=== PATIENT | male | born 1985 | race Caucasian/White ===

== ENCOUNTER → 2025-03-11 | Outpatient (CLI) | payer OTHER, SELFPAY ==
--- NOTE | 2025-03-11 08:10 | ECHOD_ITS ---
Reason For Study Reason For Study: Palpitations Procedure This was a 2D Doppler, Color Flow transthoracic echocardiogram. Myocardial strain analysis was performed in this exam to aid in the assessment of cardiac function. Exam performed in department. Left Ventricle Normal left ventricle. The global longitudinal strain = -17.0 % (normal). The left ventricular ejection fraction is 55 %. No regional wall motion abnormalities noted. Right Ventricle Normal RV size. Normal systolic function. Atria Normal left atrium. Normal right atrium. Bubble contrast study is negative for PFO/ASD. Aneurysmal atrial septum. Mitral Valve Normal mitral valve. Mild (1+) anteriorly directed mitral valve insufficiency. Tricuspid Valve Normal tricuspid valve. Aortic Valve Trisinus/trileaflet aortic valve. Pulmonic Valve Normal pulmonic valve. Great Vessels Normal aortic root. The pulmonary artery is normal size. Normal inferior vena cava. Pericardium/Pleural No pericardial effusion. Medication 22 gauge I.V. with prn adaptor inserted into right arm. Performed a rapid injection of agitated mix of 9 cc saline and 1cc air to assess for atrial septal defect. MMode/2D Measurements & Calculations LVIDd: 5.7 cm IVSd: 1.1 cm Ao root diam: 3.4 cm LVIDs: 3.5 cm LVPWd: 0.85 cm RVDd: 4.5 cm FS: 38.1 % LAV(MOD-bp): 52.1 ml LVAd ap4: 40.2 cm2 SV(MOD-sp4): 81.8 ml LAV(MOD-bp) Indexed: 23.5 ml/m2 LVLd ap4: 8.8 cm SI(MOD-sp4): 36.9 ml/m2 LAV(MOD-sp2): 64.9 ml EDV(MOD-sp4): 150.5 ml LAV(MOD-sp4): 35.0 ml EDV(sp4-el): 156.3 ml LVAs ap4: 25.1 cm2 LVLs ap4: 7.8 cm ESV(MOD-sp4): 68.6 ml ESV(sp4-el): 68.7 ml EF(MOD-sp4): 54.4 % EF(sp4-el): 56.0 % SV(sp4-el): 87.6 ml LA A4 area: 15.2 cm2 LA dimension(2D): 3.8 cm RA A4 area: 15.2 cm2 TAPSE: 1.7 cm Time Measurements MV dec time: 0.26 sec Doppler Measurements & Calculations MV E max santhosh: 46.6 cm/sec Lat Peak E' Santhosh: 18.0 cm/sec Med Peak E' Santhosh: 12.9 cm/sec MV A max santhosh: 35.8 cm/sec E/E' lat: 2.6 E/E' med: 3.6 MV E/A: 1.3 MV V2 max: 61.5 cm/sec MV P1/2t max santhosh: 61.5 cm/sec Ao V2 max: 93.5 cm/sec MV max P.5 mmHg MV P1/2t: 95.1 msec Ao max P.5 mmHg MV V2 mean: 31.1 cm/sec MV dec slope: 189.4 cm/sec2 Ao V2 mean: 69.8 cm/sec MV mean P.47 mmHg MVA(P1/2t): 2.3 cm2 Ao mean P.2 mmHg MV V2 VTI: 18.9 cm Ao V2 VTI: 21.3 cm AV (velocity ratio): 0.92 LV V1 max: 89.9 cm/sec PA V2 max: 94.2 cm/sec LV V1 max P.2 mmHg LV V1 mean P.9 mmHg LV V1 mean: 65.6 cm/sec LV V1 VTI: 19.5 cm ECHO/Echo Complete Interpretation Summary Normal left ventricle. The global longitudinal strain = -17.0 % (normal). No regional wall motion abnormalities noted. The left ventricular ejection fraction is 55 %. Ordering Physician: Jabier Dexter Referring Physician: Jabier Dexter Performed By: Darin Terrell RCS
--- NOTE | 2025-03-11 08:10 | EKG12_ITS ---
Test Reason : DIZZINESS/CP Blood Pressure : */* mmHG Vent. Rate : 62 BPM Atrial Rate : 62 BPM P-R Int : 160 ms QRS Dur : 100 ms QT Int : 416 ms P-R-T Axes : 76 78 70 degrees QTcB Int : 422 ms Normal sinus rhythm Normal ECG Confirmed by Gordon Ken ([id number]), news editor EFRAÍN PAN [id number]) on 03/12/2025 7:16:23 AM Referred By: Jabier Dexter Confirmed By: Gordon Ken
== END | disposition home or self-care (01) ==
LOC: CVS 08:08
PROVIDERS: Referring Provider Chiropractor; Visit Provider Chiropractor
DX: R00.2 Palpitations (principal)
CPT/HCPCS: 93005; 93306; A4216